=== PATIENT | male | born 1935 | race Caucasian/White ===

== ENCOUNTER 2018-07-31 12:32 | Emergency (ER) | payer OTHER, MEDICARE ==
[2018-07-31 13:52] LABS: Absolute Lymphocytes (CBC) 1.1 K/uL (0.7-4.9); Basophils % 0.4 % (0-1.3); Eosinophils % 2.3 % (0-4.4); Hematocrit 44.5 % (39.6-49.0); Lymphocytes % 11.3 % (15.3-44.8); MPV 8.4 fL (7.6-11.3); Monocytes % 9.4 % (3.3-12.3); RBC Red Blood Cell Count 4.95 M/uL (4.33-5.43)
[2018-07-31 14:06] LABS: Potassium 3.6 mmol/L (3.5-5.1)
[2018-07-31 15:51] LABS: Urine Appearance TURBID; Urine Blood 3+ (NEG); Urine Color RED; Urine Glucose NEGATIVE (NEG); Urine Protein 3+ (NEG)
[2018-07-31 16:06] LABS: Urine Bilirubin NEGATIVE (NEG); Urine Microscopic Reflex ORDER UMIC
[2018-07-31 16:09] LABS: Urine Amorphous Sediment 1+ /HPF (NONE SEEN); Urine Bacteria 20-50 /HPF (NONE SEEN); Urine Culture Reflex Order REFLEXED; Urine Mucus 3+ /HPF (NONE SEEN); Urine RBC TNTC /HPF (NONE SEEN)
--- NOTE | 2018-07-31 16:39 | EDPHYS ---
Physician Documentation [facility] Name: Kailash Jewell Age: 83 yrs Sex: Male : 1935 Arrival Date: 07/31/2018 Time: 12:36 Bed 14 Private MD: ED Physician Lefty Coles HPI: 07/31 16:31 This 83 yrs old Male presents to ER via Ambulatory with complaints of Blood kdr In Urine. 16:31 The patient presents with a Kay catheter problem, draining bloody urine. Onset: The kdr symptoms/episode began/occurred gradually, last few days. Modifying factors: The symptoms are alleviated by nothing, the symptoms are aggravated by nothing. Associated signs and symptoms: The patient has no apparent associated signs or symptoms. Severity of symptoms: At their worst the symptoms were mild, in the emergency department the symptoms are unchanged. For the last few days. The patient has been recently seen by a physician: Historical: - Allergies: 12:45 No Known Allergies; hj - PMHx: 12:45 bladder infection; hj 12:46 Dementia; hj - PSHx: 12:45 catheter insertion; hj - Immunization history:: Adult Immunizations unknown. - Social history:: Smoking status: Patient/guardian denies using tobacco. - Ebola Screening: : Patient negative for fever greater than or equal to 101.5 degrees Fahrenheit, and additional compatible Ebola Virus Disease symptoms Patient denies exposure to infectious person Patient denies travel to an Ebola-affected area in the 21 days before illness onset No symptoms or risks identified at this time. ROS: 16:31 Constitutional: Negative for fever, chills, and weight loss, Eyes: Negative for injury, kdr pain, redness, and discharge, Neck: Negative for injury, pain, and swelling, Cardiovascular: Negative for chest pain, palpitations, and edema. 16:31 : Positive for urinary symptoms, hematuria, Negative for difficulty urinating, foul smelling urine, penile discharge. Exam: 16:31 Constitutional: This is a well developed, well nourished patient who is awake, alert, kdr and in no acute distress. Head/Face: Normocephalic, atraumatic. Eyes: Pupils equal round and reactive to light, extra-ocular motions intact. Lids and lashes normal. Conjunctiva and sclera are non-icteric and not injected. Cornea within normal limits. Periorbital areas with no swelling, redness, or edema. Abdomen/GI: Soft, non-tender, with normal bowel sounds. No distension or tympany. No guarding or rebound. No evidence of tenderness throughout. Back: No spinal tenderness. No costovertebral tenderness. Full range of motion. Skin: Warm, dry with normal turgor. Normal color with no rashes, no lesions, and no evidence of cellulitis. 16:31 : CVA tenderness, is absent, Bladder: is normal, a kay is noted, clamped, urine is blood tinged, noted to have tess blood. Vital Signs: 12:45 BP 128 / 68; Pulse 99; Resp 18; Temp 98.1(O); Pulse Ox 96% on R/A; Weight 68.04 kg; hj Height 5 ft. 11 in. (180.34 cm); Pain 8/10; 14:14 BP 132 / 79; Pulse 78; Resp 18; Temp 98.6(O); Pulse Ox 94% on R/A; mh5 16:17 BP 121 / 72; Pulse 78; Resp 18; Pulse Ox 100% ; tw2 12:45 Body Mass Index 20.92 (68.04 kg, 180.34 cm) hj MDM: 16:31 Data reviewed: vital signs, nurses notes, lab test result(s). Counseling: I had a kdr detailed discussion with the patient and/or guardian regarding: the historical points, exam findings, and any diagnostic results supporting the discharge/admit diagnosis, lab results, the need for outpatient follow up. 16:38 Patient medically screened. [facility] 07/31 13:17 Order name: Urine Culture [facility] 07/31 13:20 Order name: CBC with Automated Diff; Complete Time: 15:15 EDMS 07/31 13:20 Order name: Basic Metabolic Panel; Complete Time: 15:15 EDGA 07/31 14:40 Order name: Urinalysis; Complete Time: 16:22 ls4 07/31 13:33 Order name: Kay: Change kay the collect urine; Complete Time: 14:40 [facility] 07/31 16:09 Order name: Urine Microscopic Only; Complete Time: 16:22 EDMS Administered Medications: 16:35 Drug: traMADol 50 mg Route: PO; ls4 17:00 Follow up: Response: No adverse reaction; Marked relief of symptoms ls4 16:36 Drug: Rocephin (cefTRIAXone) 1 grams Route: IM; Site: left ventrogluteal; ls4 08/01 07:24 Follow up: Response: No adverse reaction ls4 Disposition: 07/31/18 16:38 Discharged to Home. Impression: Hematuria, Urinary tract infection, site not specified. - Condition is Stable. - Discharge Instructions: Hematuria, Adult, Urinary Tract Infection, Adult, [id number]. - Prescriptions for Bactrim DS 800- 160 mg Oral Tablet - take 1 tablet by ORAL route every 12 hours for 10 days; 20 tablet. Tramadol 50 mg Oral Tablet - take 1 tablet by ORAL route every 12 hours as needed; 20 tablet. - Medication Reconciliation Form, Thank You Letter, Antibiotic Education, Work release form form. - Follow up: Private Physician; When: 2 - 3 days; Reason: If symptoms return, Further diagnostic work-up, Recheck today's complaints, Continuance of care, Re-evaluation by your physician. - Problem is new. - Symptoms are unchanged. Signatures: Dispatcher [employer] EDGA Lefty Coles MD MD [facility] Chuck Carrillo RN RN Ledy Martinez RN RN ls4 Corrections: (The following items were deleted from the chart) 07/31 14:42 13:19 Urine Dipstick-Ancillary ordered. kdr ls4 17:20 16:38 07/31/2018 16:38 Discharged to Home. Impression: Hematuria; Urinary tract ls4 infection, site not specified. Condition is Stable. Forms are Work release form, Medication Reconciliation Form, Thank You Letter, Antibiotic Education, Prescription Opioid Use. Follow up: Private Physician; When: 2 - 3 days; Reason: If symptoms return, Further diagnostic work-up, Recheck today's complaints, Continuance of care, Re-evaluation by your physician. Problem is new. Symptoms are unchanged. kdr
--- NOTE | 2018-07-31 16:39 | ER ---
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 Transition of care: patient was not received from another setting of care. Onset of symptoms was July 31, 2018. Risk Assessment: Do you want to hurt yourself or someone else? Patient reports no desire to harm self or others. Initial Sepsis Screen: Does the patient meet any 2 criteria? No. Patient's initial sepsis screen is negative. Does the patient have a suspected source of infection? No. Patient's initial sepsis screen is negative. Care prior to arrival: None. 12:42 Method Of Arrival: Ambulatory 12:42 Acuity: SIMONA 3 hj Historical: - Allergies: 12:45 No Known Allergies; hj - PMHx: 12:45 bladder infection; hj 12:46 Dementia; hj - PSHx: 12:45 catheter insertion; hj - Immunization history:: Adult Immunizations unknown. - Social history:: Smoking status: Patient/guardian denies using tobacco. - Ebola Screening: : Patient negative for fever greater than or equal to 101.5 degrees Fahrenheit, and additional compatible Ebola Virus Disease symptoms Patient denies exposure to infectious person Patient denies travel to an Ebola-affected area in the 21 days before illness onset No symptoms or risks identified at this time. Screenin:49 Abuse screen: Denies threats or abuse. Denies injuries from another. Nutritional ls4 screening: No deficits noted. Tuberculosis screening: No symptoms or risk factors identified. Fall Risk None identified. Assessment: 13:01 General: Appears in no apparent distress. uncomfortable, Behavior is calm, cooperative. ls4 Pain: Complains of pain in groin Pain currently is 8 out of 10 on a pain scale. Pain began suddenly, 2-3 days ago. Neuro: Oriented to person, situation, Chief Substation Operator are equal bilaterally Moves all extremities. Gait is steady, Speech is normal, Facial symmetry appears normal, Pupils are PERRLA. Cardiovascular: Denies chest pain, diaphoresis, fatigue, lightheadedness, shortness of breath, syncope. Respiratory: Airway is patent Respiratory effort is even, unlabored, Breath sounds are clear bilaterally. : Moreno in place clamped Urine is blood tinged, Reports pain. Derm: Skin is pink, warm \T\ dry. Musculoskeletal: Circulation, motion, and sensation intact. Capillary refill < 3 seconds, Range of motion: intact in all extremities. 14:49 Reassessment: Patient and/or family updated on plan of care and expected duration. Pain ls4 level reassessed. Patient is alert, oriented x 3, equal unlabored respirations, skin warm/dry/pink. 15:45 Reassessment: Patient and/or family updated on plan of care and expected duration. Pain ls4 level reassessed. Patient is alert, oriented x 3, equal unlabored respirations, skin warm/dry/pink. 16:23 Reassessment: Patient and/or family updated on plan of care and expected duration. Pain ls4 level reassessed. Patient is alert, oriented x 3, equal unlabored respirations, skin warm/dry/pink. Vital Signs: 12:45 BP 128 / 68; Pulse 99; Resp 18; Temp 98.1(O); Pulse Ox 96% on R/A; Weight 68.04 kg; hj Height 5 ft. 11 in. (180.34 cm); Pain 8/10; 14:14 BP 132 / 79; Pulse 78; Resp 18; Temp 98.6(O); Pulse Ox 94% on R/A; mh5 16:17 BP 121 / 72; Pulse 78; Resp 18; Pulse Ox 100% ; tw2 12:45 Body Mass Index 20.92 (68.04 kg, 180.34 cm) ED Course: 12:36 Patient arrived in ED. rg4 12:44 Triage completed. hj 12:45 Arm band placed on right wrist. hj 13:07 Lefty Coles MD is Attending Physician. kdr 13:07 Ledy Goode, RILEY is Primary Nurse. ls4 13:50 No provider procedures requiring assistance completed. Inserted saline lock: 20 gauge ls4 in right antecubital area, using aseptic technique. 14:15 Patient has correct armband on for positive identification. Placed in gown. Bed in low mh5 position. Call light in reach. Side rails up X2. Adult w/ patient. Warm blanket given. Pulse ox on. NIBP on. 14:20 Moreno cath inserted, using sterile technique, 16 Fr., by wv, balloon inflated, to ls4 gravity drainage, urine specimen collected. returned bloody urine. Patient tolerated well. removed catheter that was in place on arrival. 14:41 Urinalysis Sent. ls4 Administered Medications: 16:35 Drug: traMADol 50 mg Route: PO; ls4 17:00 Follow up: Response: No adverse reaction; Marked relief of symptoms ls4 16:36 Drug: Rocephin (cefTRIAXone) 1 grams Route: IM; Site: left ventrogluteal; ls4 08/01 07:24 Follow up: Response: No adverse reaction ls4 Outcome: 07/31 16:38 Discharge ordered by . kdr 17:20 Patient left the ED. ls4 Signatures: Lefty Coles MD MD [facility] Chuck Carrillo RN RN Qian Guajardo RN RN [facility] Kamille Rodríguez [facility] Sara Wolf [facility] Ledy Goode, RN RN ls4 Corrections: (The following items were deleted from the chart) 12:47 12:45 68.04 kg; Height 5 ft. 11 in.; BMI: 20.9; Pain 8/10; hj hj 12:48 12:45 Pulse 99bpm; Resp 18bpm; Pulse Ox 96% RA; Temp 98.1F Oral; 68.04 kg; Height 5 ft. hj 11 in.; BMI: 20.9; Pain 8/10; hj 08/01 07:24 07/31 16:46 Response: No adverse reaction; Marked relief of symptoms ls4 ls4
[2018-07-31] MEDS ORDERED: LIDOCAINE 1% MPF 2 ML AMPULE ONE (16:44)
[2018-07-31] MEDS ORDERED: CEFTRIAXONE 1000 MG/VIAL ONE (16:45)
[2018-07-31] MEDS ORDERED: TRAMADOL HCL 50 MG TAB ONE (16:45)
== END 2018-07-31 17:20 | disposition home or self-care (01) ==
LOC: ER 12:32
PROC: 0T2BX0Z Change Drainage Device in Bladder, External Approach (ICD-10-PCS; principal; 2018-07-31)
DX: N39.0 Urinary tract infection, site not specified (principal)
CPT/HCPCS: 87088; 85025; 80048; 36415; 51702 ×2; 96372; 99284; J2001; 81003; 81015; 87086